=== PATIENT | female | born 1930 | race Caucasian/White ===

== ENCOUNTER 2018-05-04 19:19 | Inpatient (IN) | payer OTHER ==
[2018-05-04] MEDS: SOD CHLORIDE 0.9% 1,000 ML IV (19:34)
[2018-05-04 19:39] LABS: ADD MAN DIFF? NO
[2018-05-04 19:41] LABS: WHITE BLOOD COUNT 14.9 10^3/ul (4.8-10.8)
[2018-05-04 19:41] LABS: BASOPHIL # 0.1 10^3/ul (0.0-0.1); BASOPHILS % 0.3 % (0.0-2.0); EOSINOPHILS % 0.1 % (0.0-7.0); HEMATOCRIT 42.1 % (37.0-47.0); HEMOGLOBIN 12.2 g/dl (12.0-16.0); LYMPHOCYTES # 1.4 10^3/ul (0.8-2.9); LYMPHOCYTES % 9.2 % (15.0-51.0); MEAN CORPUSCULAR HEMOGLOBIN 30.5 pg (29.0-33.0); MEAN CORPUSCULAR VOLUME 105.3 fl (82.0-101.0); MEAN PLATELET VOLUME 9.8 fl (7.4-10.4); MONOCYTES % 6.4 % (0.0-11.0); NEUTROPHIL # 12.2 10^3/ul (1.6-7.5); NEUTROPHILS % 82.2 % (39.0-77.0); PLATELET COUNT 238 10^3/UL (140-415); RED CELL DISTRIBUTION WIDTH 14.3 % (11.5-14.5)
[2018-05-04 19:53] LABS: INR 0.84; PROTIME 11.6 Sec (11.9-14.9); PT RATIO 0.9
[2018-05-04 19:54] LABS: PARTIAL THROMBOPLASTIN TIME 31.6 Sec (23.0-35.0)
[2018-05-04] MEDS: ENALAPRILAT 1.25 MG INJ IV (20:00)
[2018-05-04 20:15] LABS: AADO2 Arterial 430.7 mmHg (7.0-24.0); Allen Test ACCEPTAB; Arterial Base Excess 9.4 mmol/L (-3.0-3); Arterial Fraction of Oxyhgb 94.8 % (93.0-99.0); Arterial HCO3 46.6 mmol/L (22.0-26.0); Arterial MetHb 0.3 % (0.0-1.5); Arterial pCO2 183.9 mmhg (35-45); MODE MASK - NRB; Site Right Radial
[2018-05-04 20:39] LABS: ALBUMIN/GLOBULIN RATIO 1.11; ANION GAP 10 (5-13)
[2018-05-04 20:40] LABS: ALANINE AMINOTRANSFERASE 17 IU/L (13-69); ALBUMIN 3.9 g/dl (3.3-4.9); ALKALINE PHOSPHATASE 59 IU/L (42-121); ASPARTATE AMINO TRANSFERASE 43 IU/L (15-46); BILIRUBIN,INDIRECT 0.4 mg/dl (0-1.1); BILIRUBIN,TOTAL 0.4 mg/dl (0.2-1.3); BLOOD UREA NITROGEN 17 mg/dl (7-20); CALCIUM 9.1 mg/dl (8.4-10.2); CARBON DIOXIDE 39 mmol/L (21-31); CHLORIDE 93 mmol/L (97-110); CREATININE 0.54 mg/dl (0.44-1.00); GLUCOSE 206 mg/dl (70-220); LIPASE 25 U/L (23-300); POTASSIUM 4.5 mmol/L (3.5-5.1); SODIUM 142 mmol/L (135-144); TOTAL PROTEIN 7.4 g/dl (6.1-8.1); TROPONIN-I < 0.012 ng/ml (0.000-0.120)
[2018-05-04 20:46] LABS: FREE T4 (FREE THYROXINE) 0.83 ng/dl (0.85-1.93)
[2018-05-04 20:47] LABS: ADD UMIC YES; FREE T3 3.77 pg/ml (2.77-5.27); UR ASCORBIC ACID 40 mg/dL (NEGATIVE); UR BILIRUBIN (Dip) NEGATIVE (NEGATIVE); UR BLOOD (Dip) NEGATIVE (NEGATIVE); UR CLARITY CLOUDY (CLEAR); UR COLOR YELLOW (YELLOW); UR GLUCOSE (Dip) NEGATIVE (NEGATIVE); UR HYALINE CAST FEW /HPF (NONE SEEN); UR KETONES (Dip) NEGATIVE (NEGATIVE); UR LEUKOCYTE ESTERASE (Dip) 2+ Leu/ul (NEGATIVE); UR NITRITE (Dip) NEGATIVE (NEGATIVE); UR RBC 6 /HPF (0-5); UR SPECIFIC GRAVITY (Dip) 1.012 (1.003-1.030); UR TOTAL PROTEIN (Dip) NEGATIVE (NEGATIVE); UR UROBILINOGEN (Dip) 2+ mg/dL (NEGATIVE); UR WBC 33 /HPF (0-5)
[2018-05-04] MEDS: DIGOXIN 500 MCG INJ IV (21:00)
[2018-05-04] MEDS: CEFEPIME 1GM/50 ML (PMX) 50 ML IVPB (21:00)
[2018-05-04] MEDS: AZITHROMYCIN 500MG/NS (PMX) 250 ML IVPB (21:30)
[2018-05-04 21:33] LABS: AADO2 Arterial 408.9 mmHg (7.0-24.0); Allen Test ACCEPTAB; Arterial Base Excess 9.3 mmol/L (-3.0-3); Arterial Blood Gas Oxygen Sat 97.3 mmHG (95.0-100.0); Arterial HCO3 46.7 mmol/L (22.0-26.0); Arterial MetHb 0.3 % (0.0-1.5); Arterial pCO2 184.2 mmhg (35-45); Blood Gas IEPAP 20/8; MODE MASK - BIPAP; Site Right Radial
[2018-05-04] MEDS: morphine 2 MG INJ IV (22:52)
[2018-05-04] MEDS ORDERED: LORAZEPAM 2 MG INJ IV (23:00)
[2018-05-05] MEDS: morphine (DRIP) 100 MG/100 ML 100 ML IV (00:17)
[2018-05-05] MEDS ORDERED: NACL 0.9% 3 ML SYG IV (02:30)
[2018-05-05] MEDS: ATROPINE 1% 5 ML OPH SL (02:52)
== END 2018-05-05 06:14 | disposition expired | DRG 871 ==
LOC: PP2 22:32 → E/R 19:19
DX: A41.9 Sepsis, unspecified organism (principal); J18.9 Pneumonia, unspecified organism; J96.22 Acute and chronic respiratory failure with hypercapnia; I50.33 Acute on chronic diastolic (congestive) heart failure; N39.0 Urinary tract infection, site not specified; I11.0 Hypertensive heart disease with heart failure; F03.90 Unspecified dementia, unspecified severity, without behavioral disturbance, psychotic disturbance, mood disturbance, and anxiety; Y95 Nosocomial condition; E03.9 Hypothyroidism, unspecified; I25.10 Atherosclerotic heart disease of native coronary artery without angina pectoris; E78.5 Hyperlipidemia, unspecified; F41.9 Anxiety disorder, unspecified
CPT/HCPCS: 36415; 36600; 70450; 71045; 71250; 74176; 80053; 81001; 82803; 83690; 84439; 84443; 84481; 84484; 85025; 85610; 85730; 87040; 87086; 93005; 94660; 96374; 96375; 99291-25